=== PATIENT | female | born 1985 | race Hispanic/Latino ===

== ENCOUNTER 2021-09-03 19:03 | Emergency (ER) | payer SELFPAY ==
[~2021-09-03] VITALS: Ht 162.6 cm; Wt 96.0 kg
[2021-09-03] MEDS ORDERED: LISINOPRIL10 MG PO (20:53)
[2021-09-03 21:07] VITALS: BP 163/100
== END 2021-09-03 21:07 | disposition home or self-care (01) ==
LOC: FSED 19:34
DX: R07.9 Chest pain, unspecified (principal); I10 Essential (primary) hypertension; R94.31 Abnormal electrocardiogram [ECG] [EKG]; F17.210 Nicotine dependence, cigarettes, uncomplicated
CPT/HCPCS: 71045; 80048; 84484; 85025; 85379; 93005; 99284